=== PATIENT | female | born 1995 | race Caucasian/White ===

== ENCOUNTER 2017-02-16 16:12 | Emergency (ER) | payer MEDICAID ==
[2017-02-16 16:14] VITALS: BP 130/87; PULSE 108; RESP 16; TEMP 99.3; O2SAT 100
[2017-02-16 17:09] LABS: BACTERIA, URINE RARE /hpf; BLOOD, URINE NEG (NEG); COMMENT (UR) CULTURE INDICATED; CULTURE IF INDICATED CULTURE INDICATED; GLUCOSE,URINE NEG (NEG); KETONE, URINE NEG (NEG); MUCUS URINE FEW /lpf (OCC); NITRITE,URINE NEG (NEG); PH, URINE 8.5 (5.0-8.5); SQUAMOUS EPITHELIAL CELL URINE 7 /hpf (0-5); URINE COLOR YELLOW (YELLW/STRAW)
[2017-02-16] MEDS ORDERED: MACR100C2 PO (17:32)
--- NOTE | 2017-02-16 17:32 | PD ---
HPI Chief Complaint: Medical Clearance Time Seen by Provider: 16:39 Travel History International Travel<30 days: No Contact w/Intl Traveler<30days: No Traveled to known affect area: No History of Present Illness HPI 21-year-old female presents to emergency department complaining of fever, nausea and vomiting 1. Patient states that she is able to tolerate fluids and food as normal but she has felt mildly nauseous today. Patient denies dysuria, hematuria, back pain, or abdominal pain. Denies any other complaints today. Patient states that she is not currently breast-feeding.Patient is also concerned that she is . PFSH Past Medical History ?: Unknown LMP: 01/20/2017 Social History Tobacco Use: No Allergies-Medications (Allergen,Severity, Reaction): Coded Allergies: No Known Allergies (Unverified , 02/16/17) Reported Meds & Prescriptions Reported Meds & Active Scripts Active Macrobid (Nitrofurantoin Monoh/Nitrofur Macro) 100 Mg Cap 100 Mg PO BID 7 Days Review of Systems Except as stated in HPI: all other systems reviewed are Neg Physical Exam Narrative GENERAL: Well-nourished, well-developed patient. Patient was changing her baby during the first 5 minutes of our interaction. SKIN: Focused skin assessment warm/dry. HEAD: Normocephalic. EYES: No scleral icterus. No injection or drainage. NECK: Supple, trachea midline. No JVD or lymphadenopathy. MUSCULOSKELETAL: No cyanosis, or edema. BACK: Nontender without obvious deformity. No CVA tenderness. PSYCHIATRIC: No delusional thought processes. No hallucinations. Data Data Last Documented VS Vital Signs Date Time Temp Pulse Resp B/P (MAP) Pulse Ox O2 Delivery O2 Flow Rate FiO2 02/16/17 17:55 02/16/17 16:14 99.3 108 16 100 Room Air Orders Orders Urinalysis - C+S If Indicated (02/16/17 16:17) Ed Urine Pregnancytest Poc (02/16/17 16:17) Influenzae A/B Antigen (02/16/17 16:17) Urine Culture (02/16/17 16:32) Ed Discharge Order (02/16/17 17:32) Labs Laboratory Tests Test 02/16/17 16:32 Urine Color YELLOW Urine Turbidity HAZY Urine pH 8.5 Urine Specific [place] 1.026 Urine Protein TRACE mg/dL Urine Glucose (UA) NEG mg/dL Urine Ketones NEG mg/dL Urine Occult Blood NEG Urine Nitrite NEG Urine Bilirubin NEG Urine Urobilinogen 4.0 MG/DL Urine Leukocyte Esterase LARGE Urine RBC 6 /hpf Urine WBC 15 /hpf Urine Squamous Epithelial Cells 7 /hpf Urine Amorphous Sediment RARE Urine Bacteria RARE /hpf Urine Mucus FEW /lpf Microscopic Urinalysis Comment CULTURE INDICATED MDM Medical Decision Making Medical Screen Exam Complete: Yes Emergency Medical Condition: Yes Differential Diagnosis Unexplained fever versus urinary tract infection versus upper respiratory infection Narrative Course 21-year-old female presents to emergency department complaining of fever, nausea and vomiting 1. Patient states that she is able to tolerate fluids and food as normal but she has felt mildly nauseous today. Patient is also concerned that she is . Patient denies dysuria, hematuria, back pain, abdominal pain, vaginal discharge. Denies any other complaints today. Vital signs stable Physical exam findings unremarkable. Patient appears nontoxic and well today. Urinalysis consistent with a urinary tract infection. Urine negative. Patient will be given Macrobid for urinary tract infection. I explained to patient that it is important she follow up with a primary care physician to further evaluate this. Patient understood and will comply. Diagnosis Primary Impression: Urinary tract infection Qualified Codes: N30.00 - Acute cystitis without hematuria Referrals: Primary Care Physician Additional Instructions: Follow-up with primary care physician within 2 days. Take medication as prescribed. May use Tylenol or Motrin per package instructions Scripts Nitrofurantoin Monohydrate Macrocrystals (Macrobid) 100 Mg Cap 100 MG PO BID for Infection for 7 Days, #14 CAP 0 Refills Prov: Agustín Boateng MD 02/16/17 Disposition: 01 DISCHARGE HOME Condition: Stable Syeda Dangelo Feb 16, 2017 17:32
== END 2017-02-16 17:56 | disposition home or self-care (01) ==
LOC: NEPK 16:12
DX: N30.00 Acute cystitis without hematuria (principal)
CPT/HCPCS: 81001; 84703; 87086; 87804; 99285